=== PATIENT | female | born 1950 | race Caucasian/White ===

== ENCOUNTER → 2016-11-08 | Outpatient (CLI) | payer MEDICARE ==
--- NOTE | 2016-11-09 07:28 | MM ---
Reason for exam: additional evaluation requested from prior study. Last mammogram was performed 1 year and 2 months ago. History: Patient is postmenopausal, has history of high-risk lesion on a previous biopsy at age 65, and has history of bilateral breast cancer at age 59. Family history of breast cancer in paternal grandmother. High risk US biopsy breast VAD LT of the left breast, September 17, 2015. Lumpectomy of the right breast, 2009. Chemotherapy, 2010. Radiation therapy, 2009. Excisional biopsy of the left breast, 2003. Physical Findings: Nurse did not find any significant physical abnormalities on exam. MG 3D Diag Mammo W/Cad SHARAD Bilateral CC and MLO view(s) were taken. Prior study comparison: September 17, 2015, left breast MG diagnostic mammo LT wo CAD. September 10, 2015, bilateral MG 3d diag mammo w/cad SH[facility]. The breast tissue is heterogeneously dense. This may lower the sensitivity of mammography. Finding #1: Architectural distortion in the right breast. Finding #2: There are typically benign calcifications in the left breast. No significant changes in finding since September 17, 2015 and September 10, 2015. These results were verbally communicated with the patient and result sheet given to the patient on 11/08/16. ASSESSMENT: Benign, BI-RAD 2 RECOMMENDATION: Follow-up diagnostic mammogram of both breasts in 1 year.
== END | disposition home or self-care (01) ==
LOC: RADMAMWWP 15:28
PROVIDERS: ATTEND Internal Medicine Hematology & Oncology
DX: Z08 Encounter for follow-up examination after completed treatment for malignant neoplasm (principal); Z85.3 Personal history of malignant neoplasm of breast
CPT/HCPCS: G0204; G0279

== ENCOUNTER → 2018-01-16 | Outpatient (CLI) | payer MEDICARE ==
--- NOTE | 2018-01-16 14:59 | MM ---
Reason for exam: additional evaluation requested from prior study. Last mammogram was performed 1 year and 2 months ago. History: Patient is postmenopausal, has history of high-risk lesion on a previous biopsy at age 65, and has history of bilateral breast cancer at age 59. Family history of breast cancer in paternal grandmother. High risk US biopsy breast VAD LT of the left breast, September 17, 2015. Excisional biopsy of the left breast, 2015. Lumpectomy of the right breast, 2009. Chemotherapy, 2009. Radiation therapy, 2009. Excisional biopsy of the left breast, 2003. Physical Findings: Nurse did not find any significant physical abnormalities on exam. MG 3D Diag Mammo W/Cad SHARAD Bilateral CC and MLO view(s) were taken. XCCL view(s) were taken of the right breast. Spot compression MLO and spot compression CC view(s) were taken of the left breast. Prior study comparison: November 08, 2016, bilateral MG 3d diag mammo w/cad [facility]. September 17, 2015, left breast MG diagnostic mammo LT wo CAD. There are scattered fibroglandular densities. There is a left new mass at 12 o'clock 2-3cm from nipple at middle depth. No suspicious abnormality in the right breast. Post therapy change on the right breast. These results were verbally communicated with the patient and result sheet given to the patient on 01/16/18. ASSESSMENT: Incomplete: need additional imaging evaluation, BI-RAD 0 RECOMMENDATION: Ultrasound of the left breast. upper outer quadrant
--- NOTE | 2018-01-16 15:02 | USB ---
Reason for exam: additional evaluation requested from abnormal screening. History: Patient is postmenopausal, has history of high-risk lesion on a previous biopsy at age 65, and has history of bilateral breast cancer at age 59. Family history of breast cancer in paternal grandmother. High risk US biopsy breast VAD LT of the left breast, September 17, 2015. Excisional biopsy of the left breast, 2015. Lumpectomy of the right breast, 2009. Chemotherapy, 2009. Radiation therapy, 2009. Excisional biopsy of the left breast, 2003. US Breast Limited LT Left limited breast ultrasound including focal area of concern, retroareolar and axilla demonstrates a 0.7 x 0.6 x 0.3cm cystic lesion at 2 o'clock and a 0.4 x 0.5 x 0.4cm irregular, hypoechoic lesion at 2 o'clock, biopsy advised. These results were verbally communicated with the patient and result sheet given to the patient on 01/16/18. ASSESSMENT: Suspicious, BI-RAD 4 RECOMMENDATION: Ultrasound core biopsy of the left breast. Called Dr. Castro with mammographic findings and patient request to scheduled her own appointment with PCP to discuss biopsy. PRELIMINARY REPORT CALLED AND FAXED TO DR. CASTRO ON 01/16/18.
== END | disposition home or self-care (01) ==
LOC: RADMAMWWP 12:47
PROVIDERS: ATTEND Family Medicine
DX: R92.8 Other abnormal and inconclusive findings on diagnostic imaging of breast (principal)
CPT/HCPCS: 77066; 76642; G0279; 77062

== ENCOUNTER → 2022-03-24 | Outpatient (CLI) | payer MEDICARE ==
--- NOTE | 2022-03-25 09:00 | MM ---
Reason for Exam: Screening (asymptomatic). Last mammogram was performed 4 year(s) and 2 month(s) ago. Patient History: Menarche at age 17. First Full-Term at age 22. Left ovary removed at age 32. Hysterectomy at age 32. Postmenopausal. Breast cancer, age 59. Previous chest radiation therapy at age 59. Previous chemotherapy at age 59. 2003, Excisional Biopsy on the Left side. 2009, Lumpectomy on the Right side. 2015, Excisional Biopsy on the Left side. 09/17/2015, High risk Core Biopsy on the left side. 2009, Chemotherapy. 2009, Radiation Therapy. Paternal grandmother had breast cancer. Prior Study Comparison: 09/17/2015 Left Diagnostic Mammogram, [facility]. 11/08/2016 Bilateral Diagnostic Mammogram, [facility]. 01/16/2018 Bilateral Diagnostic Mammogram, [facility]. Tissue Density: The breast tissue is heterogeneously dense. This may lower the sensitivity of mammography. Findings: Analyzed By CAD. The pattern is asymmetric with greater parenchymal tissue on the left. The pattern is stable from comparison. No suspicious groups of microcalcifications, spiculated or lobular masses, architectural distortion or other secondary signs of malignancy are mammographically apparent. Overall Assessment: Benign, BI-RAD 2 Management: Screening Mammogram of both breasts in 1 year. A negative mammogram report should not preclude additional follow up of suspicious palpable abnormalities. Patient should continue monthly self breast exam. A clinical breast exam by your physician is recommended on an annual basis and results should be correlated with mammographic findings. Electronically signed and approved by: Amrik Arriaga D.O. Radiologis
== END | disposition home or self-care (01) ==
LOC: RADMAMWWP 14:20
PROVIDERS: ATTEND Family Medicine
DX: Z12.31 Encounter for screening mammogram for malignant neoplasm of breast (principal); Z78.0 Asymptomatic menopausal state; Z80.3 Family history of malignant neoplasm of breast
CPT/HCPCS: 77067

== ENCOUNTER → 2023-04-05 | Outpatient (CLI) | payer MEDICARE ==
--- NOTE | 2023-04-07 08:16 | MM ---
Reason for Exam: Screening (asymptomatic). Last mammogram was performed 1 year(s) and 1 month(s) ago. Patient History: Menarche at age 17. First Full-Term at age 22. Left ovary removed at age 32. Hysterectomy at age 32. Postmenopausal. Breast cancer, right, age 59. Previous chest radiation therapy at age 59. Previous chemotherapy at age 59. 2003, Excisional Biopsy on the Left side. 2009, Lumpectomy on the Right side. 2015, Excisional Biopsy on the Left side. 09/17/2015, High risk Core Biopsy on the left side. 2009, Chemotherapy. 2009, Radiation Therapy. Paternal grandmother had breast cancer, age 50. Prior Study Comparison: 11/08/2016 Bilateral Diagnostic Mammogram, [facility]. 01/16/2018 Bilateral Diagnostic Mammogram, [facility]. 03/24/2022 Bilateral MG screening mammo w CAD, [facility]. Tissue Density: The breast tissue is heterogeneously dense. This may lower the sensitivity of mammography. Findings: Analyzed By CAD. There is postoperative change upper outer right breast however there is increasing distortion. Additional views are recommended. Chronic nodularity left breast. Overall Assessment: Incomplete: need additional imaging evaluation, BI-RAD 0 Management: Diagnostic Mammogram of the right breast. . Patient should continue monthly self-breast exams. A clinical breast exam by your physician is recommended on an annual basis. This exam should not preclude additional follow-up of suspicious palpable abnormalities. Note on Angela scores and lifetime risk: 1. A Angela score greater than 3% is considered moderate risk. If this is the case, consider specialist referral to assess eligibility for a risk reducing agent. 2. If overall lifetime risk for the development of breast cancer is 20% or higher, the patient may qualify for future screening with alternating mammogram and breast MRI. Electronically signed and approved by: Nader Sales M.D. Radiologis
== END | disposition home or self-care (01) ==
LOC: RADMAMWWP 15:03
PROVIDERS: ATTEND Family Medicine
DX: Z12.31 Encounter for screening mammogram for malignant neoplasm of breast (principal); E03.9 Hypothyroidism, unspecified
CPT/HCPCS: 77063; 77067

== ENCOUNTER → 2023-04-18 | Outpatient (CLI) | payer MEDICARE ==
--- NOTE | 2023-04-18 14:25 | MM ---
Reason for Exam: Additional evaluation requested from abnormal screening. Last screening mammogram was performed less than 1 month ago. Patient History: Menarche at age 17. First Full-Term at age 22. Left ovary removed at age 32. Hysterectomy at age 32. Postmenopausal. Breast cancer, right, age 59. Previous chest radiation therapy at age 59. Previous chemotherapy at age 59. 2003, Excisional Biopsy on the Left side. 2009, Lumpectomy on the Right side. 2015, Excisional Biopsy on the Left side. 09/17/2015, High risk Core Biopsy on the left side. 2009, Chemotherapy. 2009, Radiation Therapy. Paternal grandmother had breast cancer, age 50. Prior Study Comparison: 09/10/2015 Bilateral Diagnostic Mammogram, [facility]. 09/10/2015 Left Diagnostic Ultrasound, [facility]. 09/17/2015 Left Diagnostic Mammogram, [facility]. 11/08/2016 Bilateral Diagnostic Mammogram, [facility]. 01/16/2018 Bilateral Diagnostic Mammogram, [facility]. 01/16/2018 Left Diagnostic Ultrasound, [facility] 03/24/2022 Bilateral MG screening mammo w CAD, [facility]. 04/05/2023 Bilateral MG 3D screening mammo w/cad, [facility]. Tissue Density: Right: There are scattered fibroglandular densities. Findings: Analyzed By CAD. The 9:00 distortion becomes less pronounced on additional views, similar appearance to prior studies. Findings compatible with patient's lumpectomy scar. Overall Assessment: Benign, BI-RAD 2 Management: Screening Mammogram of both breasts in 1 year. . Results were given to the patient verbally at the time of exam. Patient should continue monthly self-breast exams. A clinical breast exam by your physician is recommended on an annual basis. This exam should not preclude additional follow-up of suspicious palpable abnormalities. Electronically signed and approved by: Yariel Arnold M.D. Radiologist
== END | disposition home or self-care (01) ==
LOC: RADMAMWWP 13:37
PROVIDERS: ATTEND Family Medicine
DX: R92.321 Mammographic fibroglandular density, right breast (principal); Z78.0 Asymptomatic menopausal state; Z80.3 Family history of malignant neoplasm of breast
CPT/HCPCS: 77065; G0279; 77061

== ENCOUNTER → 2024-06-06 | Outpatient (CLI) | payer MEDICARE ==
--- NOTE | 2024-06-06 17:35 | MM ---
Reason for Exam: Screening (asymptomatic). Last mammogram was performed 1 year(s) and 2 month(s) ago. Patient History: Menarche at age 17. First Full-Term at age 22. Left ovary removed at age 32. Hysterectomy at age 32. Postmenopausal. Breast cancer, right, age 59. Previous chest radiation therapy at age 59. Previous chemotherapy at age 59. 2003, Excisional Biopsy on the Left side. 2009, Lumpectomy on the Right side. 2015, Excisional Biopsy on the Left side. 09/17/2015, High risk Core Biopsy on the left side. 2009, Chemotherapy. 2009, Radiation Therapy. Paternal grandmother had breast cancer, age 50. Prior Study Comparison: 03/24/2022 Bilateral MG screening mammo w CAD, [facility]. 04/05/2023 Bilateral MG 3D screening mammo w/cad, [facility]. 04/18/2023 Right MG 3D work up w/cad RT, [facility]. Tissue Density: The breasts are heterogeneously dense, which may obscure small masses. Findings: Analyzed By CAD. Postsurgical and posttreatment changes redemonstrated right breast. Possible global asymmetry 12:00 left breast extending from anterior to posterior appears more defined and possibly larger from older priors. This may represent superimposition shadow. Further evaluation recommended there otherwise, no significant change. Overall Assessment: Incomplete: need additional imaging evaluation, BI-RAD 0 Management: Special View Mammogram of the left breast. Diagnostic Breast Ultrasound of the left breast. Additional views followed by targeted ultrasound left breast 10-[address] [facility] will attempt to contact patient to return for supplemental views and ultrasound. [facility], , 06/06/2024 5:32 PM. Electronically signed and approved by: Yariel Arnold M.D. Radiologist
== END | disposition home or self-care (01) ==
LOC: RADMAMWWP 13:56
PROVIDERS: ATTEND Family Medicine
DX: Z12.31 Encounter for screening mammogram for malignant neoplasm of breast (principal); R92.333 Mammographic heterogeneous density, bilateral breasts; R92.1 Mammographic calcification found on diagnostic imaging of breast; Z78.0 Asymptomatic menopausal state; Z80.3 Family history of malignant neoplasm of breast; Z85.3 Personal history of malignant neoplasm of breast; Z98.890 Other specified postprocedural states
CPT/HCPCS: 77063; 77067

== ENCOUNTER → 2024-06-20 | Outpatient (CLI) | payer MEDICARE ==
--- NOTE | 2024-06-20 15:45 | USB ---
Reason for Exam: Additional evaluation requested from prior study. Patient History: Menarche at age 17. First Full-Term at age 22. Left ovary removed at age 32. Hysterectomy at age 32. Postmenopausal. Breast cancer, right, age 59. Previous chest radiation therapy at age 59. Previous chemotherapy at age 59. 2003, Excisional Biopsy on the Left side. 2009, Lumpectomy on the Right side. 2015, Excisional Biopsy on the Left side. 09/17/2015, High risk Core Biopsy on the left side. 2009, Chemotherapy. 2009, Radiation Therapy. Paternal grandmother had breast cancer, age 50. Technique: Method: Targeted. Prior Study Comparison: 04/05/2023 Bilateral MG 3D screening mammo w/cad, [facility]. 04/18/2023 Right MG 3D work up w/cad RT, [facility]. 06/06/2024 Bilateral MG 3D screening mammo w/cad, [facility]. Findings: The upper section of the breast of the left breast, the axilla of the left breast and the retroareolar of the left breast were scanned. At the site of mammographic concern there is no evidence for mass. Distortion likely related to postoperative change. Cystic structures seen adjacent to the nipple measuring 8 x 5 mm. Overall Assessment: Benign, BI-RAD 2 Management: Diagnostic Mammogram of both breasts in 1 year. A clinical breast exam by your physician is recommended on an annual basis and results should be correlated with mammographic findings. This exam should not preclude additional follow-up of suspicious palpable abnormalities. Results were given to the patient verbally at the time of exam. [facility], , 06/20/2024 3:42 PM. Electronically signed and approved by: Nader Sales M.D. Radiologis
--- NOTE | 2024-06-24 10:29 | MM ---
Reason for Exam: Additional evaluation requested from abnormal screening. Last screening mammogram was performed less than 1 month ago. Patient History: Menarche at age 17. First Full-Term at age 22. Left ovary removed at age 32. Hysterectomy at age 32. Postmenopausal. Breast cancer, right, age 59. Previous chest radiation therapy at age 59. Previous chemotherapy at age 59. 2003, Excisional Biopsy on the Left side. 2009, Lumpectomy on the Right side. 2015, Excisional Biopsy on the Left side. 09/17/2015, High risk Core Biopsy on the left side. 2009, Chemotherapy. 2009, Radiation Therapy. Paternal grandmother had breast cancer, age 50. Prior Study Comparison: 04/05/2023 Bilateral MG 3D screening mammo w/cad, [facility]. 04/18/2023 Right MG 3D work up w/cad RT, [facility]. 06/06/2024 Bilateral MG 3D screening mammo w/cad, [facility]. Tissue Density: Left: The breasts are heterogeneously dense, which may obscure small masses. Findings: Analyzed By CAD. Postoperative distortion right breast is unchanged. There is elongate density as well as distortion left breast likely mostly postoperative in appearance however there is persistent nodularity. Ultrasound of the left breast is advised. Overall Assessment: Incomplete: need additional imaging evaluation, BI-RAD 0 Management: Diagnostic Breast Ultrasound of the left breast. Results were given to the patient verbally at the time of exam. Patient should continue monthly self-breast exams. A clinical breast exam by your physician is recommended on an annual basis. This exam should not preclude additional follow-up of suspicious palpable abnormalities. Note on Angela scores and lifetime risk: 1. A Angela score greater than 3% is considered moderate risk. If this is the case, consider specialist referral to assess eligibility for a risk reducing agent. 2. If overall lifetime risk for the development of breast cancer is 20% or higher, the patient may qualify for future screening with alternating mammogram and breast MRI. [facility], , 06/21/2024 10:18 AM. Electronically signed and approved by: Nader Sales M.D. Radiologis
== END | disposition home or self-care (01) ==
LOC: RADMAMWWP 14:55
PROVIDERS: ATTEND Family Medicine
DX: R92.8 Other abnormal and inconclusive findings on diagnostic imaging of breast (principal); R92.332 Mammographic heterogeneous density, left breast; Z85.3 Personal history of malignant neoplasm of breast; Z80.3 Family history of malignant neoplasm of breast; Z78.0 Asymptomatic menopausal state
CPT/HCPCS: 77061; 77065